=== PATIENT | female | born 1960 | race Caucasian/White ===

== ENCOUNTER → 2021-06-10 | Outpatient (CLI) | payer BC ==
--- NOTE | 2021-06-10 15:36 | XR ---
Lumbosacral spine HISTORY:[id number] LT SCIATIC PAIN 5 views of lumbosacral spine There is multilevel spondylosis. Bone mineralization is reduced. There is no evident spondylolysis or spondylolisthesis. Loss of disc height is present at intervertebral levels. Sclerosis is present in the posterior elements of the lumbar spine. Lumbar vertebral bodies show preserved height. Atheroscle rotic calcification present in the aortoiliac distribution. There is a slight spinal curvature. IMPRESSION: Degenerative disc disease, facet arthropathy, osteopenia. Slight spinal curvature.
== END | disposition home or self-care (01) ==
LOC: RADXRYALE 13:53
PROVIDERS: ATTEND Internal Medicine
DX: M51.36 Other intervertebral disc degeneration, lumbar region (principal); M12.88 Other specific arthropathies, not elsewhere classified, other specified site; M85.80 Other specified disorders of bone density and structure, unspecified site
CPT/HCPCS: 72110